=== PATIENT | male | born 1945 | race Asian ===

== ENCOUNTER 2016-08-10 06:20 | Day surgery (SDC) | payer MEDICARE, OTHER ==
--- NOTE | ~2016-08-10 | EGD ---
EGD REPORT [facility] [address] [address] NAME: OUMAR WILSON : [birth year] STATUS : REG [facility]#: [id number] AGE: 70 ADM/REG DATE : 08/10/16 MR#: [id number] REPORT SERV DATE: 08/10/16 DICTATED BY: ROGELIO IBARRA DATE: 08/10/16 REPORT STATUS : Draft TRANSCRIBED BY: [email or web address] DATE: 08/10/16 Endoscopy Center Patient Name: Oumar Wilson Date of : 1945 Attending MD: ROGELIO IBARRA MD Procedure Date No Time: 08/10/2016 Procedure: Colonoscopy Indications: High risk colon cancer surveillance: Personal history of colonic polyps Referring MD: Jayden Carrizales MD Medicines: Propofol per Anesthesia Complications: No immediate complications. Procedure: Pre-Anesthesia Assessment: - ASA Grade Assessment: III - A patient with severe systemic disease. - Prior to the procedure, a History and Physical was performed, and patient medications and allergies were reviewed. The patient's tolerance of previous anesthesia was also reviewed. The risks and benefits of the procedure and the sedation options and risks were discussed with the patient. All questions were answered, and informed consent was obtained. Prior Anticoagulants: The patient has taken no previous anticoagulant or antiplatelet agents. ASA Grade Assessment: II - A patient with mild systemic disease. After reviewing the risks and benefits, the patient was deemed in satisfactory condition to undergo the procedure. After I obtained informed consent, the scope was passed under direct vision. Throughout the procedure, the patient's blood pressure, pulse, and oxygen saturations were monitored continuously. The CF [id number] was introduced through the anus and advanced to the cecum, identified by appendiceal orifice and ileocecal valve. The colonoscopy was performed without difficulty. The patient tolerated the procedure well. The quality of the bowel preparation was good. The ileocecal valve, appendiceal orifice and rectum were photographed. The entire colon was examined. The colonoscopy was performed without difficulty. The patient tolerated the procedure well. The quality of the bowel preparation was good. Findings: The perianal and digital rectal examinations were normal. A sessile polyp was found at the hepatic flexure. The polyp was 10 mm in size. The polyp was removed with a hot snare. Resection and retrieval EGD REPORT [address] [address] NAME: OUMAR WILSON : [birth year] STATUS : REG [facility] PAT#: [id number] AGE: 70 ADM/REG DATE : 08/10/16 MR#: [id number] REPORT SERV DATE: 08/10/16 DICTATED BY: ROGELIO IBARRA DATE: 08/10/16 REPORT STATUS : Draft TRANSCRIBED BY: [employer] SERVICES DATE: 08/10/16 were complete. A sessile polyp was found at the hepatic flexure. The polyp was 5 mm in size. The polyp was removed with a hot snare. Resection and retrieval were complete. A few small-mouthed diverticula were found in the sigmoid colon, in the descending colon and at the splenic flexure. Internal hemorrhoids were found during retroflexion and were Grade I (internal hemorrhoids that do not prolapse). The rest of the colon was normal. Impression: - One 10 mm polyp at the hepatic flexure. Resected and retrieved. - One 5 mm polyp at the hepatic flexure. Resected and retrieved. - Diverticulosis at the splenic flexure, in the transverse colon and at the hepatic flexure. - Internal hemorrhoids. The rest of the colon was normal. Recommendation: - Patient has a contact number available for emergencies. The signs and symptoms of potential delayed complications were discussed with the patient. Return to normal activities tomorrow. Written discharge instructions were provided to the patient. - Regular diet. - Patient has a contact number available for emergencies. The signs and symptoms of potential delayed complications were discussed with the patient. Return to normal activities tomorrow. Written discharge instructions were provided to the patient. - Continue present medications. - Patient has a contact number available for emergencies. The signs and symptoms of potential delayed complications were discussed with the patient. Return to normal activities tomorrow. Written discharge instructions were provided to the patient. - Regular diet. - Patient has a contact number available for emergencies. The signs and symptoms of potential delayed complications were discussed with the patient. Return to normal activities tomorrow. Written discharge instructions were provided to the patient. - Continue present medications. - Repeat colonoscopy in 3 years for surveillance. - Return to my office in 3 weeks. Procedure Code(s): --- Professional --- EGD REPORT [address] [address] NAME: OUMAR WILSON : [birth year] STATUS : REG [facility] PAT#: [id number] AGE: 70 ADM/REG DATE : 08/10/16 MR#: [id number] REPORT SERV DATE: 08/10/16 DICTATED BY: ROGELIO IBARRA. DATE: 08/10/16 REPORT STATUS : Draft TRANSCRIBED BY: [employer] DATE: 08/10/16 36539, Colonoscopy, flexible, proximal to splenic flexure; with removal of tumor(s), polyp(s), or other lesion(s) by snare technique Diagnosis Code(s): --- Professional --- D12.3, Benign neoplasm of transverse colon K64.0, First degree hemorrhoids K57.30, Diverticulosis of large intestine without perforation or abscess without bleeding Z86.010, Personal history of colonic polyps CPT copyright 2013 [employer]. All rights reserved. The codes documented in this report are preliminary and upon operating room manager review may be revised to meet current compliance requirements. Rogelio Ibarra MD ROGELIO IBARRA MD 08/10/2016 9:15 AM This report has been signed electronically. Number of Addenda: 0 Note Initiated On: 08/10/2016 8:46 AM Scope Withdrawal Time 0 hours 11 minutes 43 seconds [address] [address]
--- NOTE | ~2016-08-10 | EGD ---
EGD REPORT [facility] [address] [address] NAME: OUMAR WILSON : [birth year] STATUS : REG [facility]#: [id number] AGE: 70 ADM/REG DATE : 08/10/16 MR#: [id number] REPORT SERV DATE: 08/10/16 DICTATED BY: ROGELIO IBARRA DATE: 08/10/16 REPORT STATUS : Draft TRANSCRIBED BY: [facility] DATE: 08/10/16 Endoscopy Center Patient Name: Oumar Wilson Date of : 1945 Attending MD: ROGELIO IBARRA MD Procedure Date No Time: 08/10/2016 Procedure: Upper GI endoscopy Indications: Epigastric abdominal pain, Dyspepsia, Heartburn Referring MD: Jayden Carrizales MD Medicines: Propofol per Anesthesia Complications: No immediate complications. Procedure: Pre-Anesthesia Assessment: - ASA Grade Assessment: III - A patient with severe systemic disease. After obtaining informed consent, the endoscope was passed under direct vision. Throughout the procedure, the patient's blood pressure, pulse, and oxygen saturations were monitored continuously. The GIF [id number] was introduced through the mouth, and advanced to the second part of duodenum. The upper GI endoscopy was accomplished without difficulty. The patient tolerated the procedure well. Findings: The examined esophagus was normal. Diffuse moderate inflammation characterized by erosions, erythema and friability was found in the stomach. Biopsies were taken with a cold forceps for histology. The examined duodenum was normal. Biopsies were taken with a cold forceps for histology. Impression: - Normal esophagus. - Chronic gastritis. Biopsied. - Normal examined duodenum. Biopsied. Recommendation: - Discharge patient to home (ambulatory). Procedure Code(s): --- Professional --- 21759, Esophagogastroduodenoscopy, flexible, transoral; with biopsy, single or multiple Diagnosis Code(s): --- Professional --- K29.50, Unspecified chronic gastritis without bleeding R10.13, Epigastric pain K30, Functional dyspepsia EGD REPORT [facility] [address] [place] [address] NAME: OUMAR WILSON : [birth year] STATUS : REG [facility] PAT#: [id number] AGE: 70 ADM/REG DATE : 08/10/16 MR#: [id number] REPORT SERV DATE: 08/10/16 DICTATED BY: ROGELIO IBARRA. DATE: 08/10/16 REPORT STATUS : Draft TRANSCRIBED BY: [employer] DATE: 08/10/16 R12, Heartburn CPT copyright 2013 [employer]. All rights reserved. The codes documented in this report are preliminary and upon citrix engineer review may be revised to meet current compliance requirements. Rogelio Ibarra MD ROGELIO IBARRA MD 08/10/2016 9:49 AM This report has been signed electronically. Number of Addenda: 0 Note Initiated On: 08/10/2016 8:34 AM Scope Withdrawal Time 0 hours 0 minutes 0 seconds [address] [place] [address]
[~2016-08-10 06:20] MED LIST: ASA5GR PO; ASAB PO; CIALIS5 MG PO; EFFIENT10 PO; FLOMAX4 PO; LIPITOR40 PO; LIPITOR80 MG PO; MULTI-VIT HP PO; NEXIUM20 M1 PO; PRIN10 PO
== END 2016-08-10 23:59 | disposition home health service (06) ==
LOC: DMU 06:20
PROVIDERS: Internal Medicine Gastroenterology
PROC: 0DB98ZX Excision of Duodenum, Via Natural or Artificial Opening Endoscopic, Diagnostic (ICD-10-PCS; 2016-08-10)
PROC: 0DBK8ZZ Excision of Ascending Colon, Via Natural or Artificial Opening Endoscopic (ICD-10-PCS; principal; 2016-08-10 08:30)
PROC: 0DB68ZX Excision of Stomach, Via Natural or Artificial Opening Endoscopic, Diagnostic (ICD-10-PCS; 2016-08-10 08:30)
DX: Z12.11 Encounter for screening for malignant neoplasm of colon (principal); D12.3 Benign neoplasm of transverse colon; K64.0 First degree hemorrhoids; K57.30 Diverticulosis of large intestine without perforation or abscess without bleeding; I10 Essential (primary) hypertension; E78.5 Hyperlipidemia, unspecified; K21.9 Gastro-esophageal reflux disease without esophagitis; I25.10 Atherosclerotic heart disease of native coronary artery without angina pectoris; Z79.02 Long term (current) use of antithrombotics/antiplatelets; Z79.82 Long term (current) use of aspirin; Z79.899 Other long term (current) drug therapy; Z98.890 Other specified postprocedural states; Z86.010 Personal history of colon polyps; Z87.891 Personal history of nicotine dependence
CPT/HCPCS: 88305